=== PATIENT | female | born 1985 | race Caucasian/White ===

== ENCOUNTER 2020-12-08 16:55 | Emergency (ER) | payer OTHER ==
[~2020-12-08] VITALS: Ht 160 cm; Wt 104.3 kg
[2020-12-08] MEDS ORDERED: CARAFATE1 GM PO (21:16)
[2020-12-08] MEDS ORDERED: LEVSIN0.125 MG PO (21:16)
[2020-12-08] MEDS ORDERED: PEPCID AC20 MG PO (21:16)
== END 2020-12-08 21:33 | disposition home or self-care (01) ==
LOC: ER 16:55
DX: K29.70 Gastritis, unspecified, without bleeding (principal)